=== PATIENT | male | born 1940 | race Caucasian/White ===

== ENCOUNTER 2025-05-11 16:58 | Emergency (ER) | payer OTHER, SELFPAY ==
[2025-05-11 17:06] VITALS: BP 128/57
[2025-05-11 17:35] LABS: Hematocrit 37.9 % (39.0-52.0); Hemoglobin 13.1 g/dL (13.0-18.0); Mean Corp Hgb Conc. 34.6 g/dL (33.0-37.0); Mean Corpuscular Volume 96.4 fL (80.0-94.0); Nucleated Red Blood Cells % 0 % (-); Platelet Count 269 10^3/uL (130-400); Red Cell Dist. Width 13.2 % (11.5-14.5)
[2025-05-11 17:50] LABS: ALT (SGPT) 31 U/L (0-50); AST (SGOT) 35 U/L (17-59); Albumin 4.1 g/dl (3.5-5.0); Alkaline Phosphatase 91 U/L (38-126); Blood Urea Nitrogen 23 mg/dl (9-20); Calcium 9.4 mg/dl (8.4-10.2); Carbon Dioxide 26 mmol/L (22-30); Chloride 103 mmol/L (98-107); Glucose 87 mg/dl (70-99); Potassium 3.5 mmol/L (3.5-5.1); Sodium 137 mmol/L (135-145); Total Protein 6.8 g/dl (6.3-8.2); eGFR 59.63
[2025-05-11 18:37] VITALS: BMI 19.5
[2025-05-11] MEDS: PROTONIX IV 40 MG IV (19:11)
[2025-05-11] MEDS: NSS 1000 IV (19:12)
[2025-05-11 19:16] VITALS: BP 140/77
--- NOTE | 2025-05-11 19:55 | ED.GENMED ---
History of Present Illness
<Pino Torres PA-C - Last Filed: 05/12/25 13:06>
General
Chief Complaint: Dehydration Symptoms
Time Seen by Provider: 05/11/25 18:34
History of Present Illness
History of Present Illness:
84-year-old male with history of recent stroke, hypertension, and hyperlipidemia presents to the emergency department for evaluation of general malaise and poor p.o. intake. According to his daughter, since his stroke he has poor appetite. He had
blood work done yesterday and his primary care physician was concerned he may be dehydrated thus sent him to the ED for fluids. Daughter also notes that his urine has been very cloudy and is concern for UTI as he requires self-catheterization. No
vomiting or diarrhea. He has been constipated for several days.
Review of Systems
<Pino Torres PA-C - Last Filed: 05/12/25 13:06>
Review of Systems
Allergies reviewed?: Yes
All Other Systems: ROS reviewed and negative except as documented in HPI and ROS
Phy Exam
<Pino Trores PA-C - Last Filed: 05/12/25 13:06>
Physical Exam
Physical Exam:
GEN: Well appearing, NAD, WDWN
HEENT: Oral mucosa moist, no scleral icterus
Cardiac: Regular rate
Lung: No respiratory distress, no tachypnea
MSK: No gross deformity or injuries
Skin: Good color, no pallor or jaundice, no rashes
Neuro: AO x3, moves all extremities freely
Psych: Calm, cooperative
Course
<Pino Torres PA-C - Last Filed: 05/12/25 13:06>
Orders/Labs/Results
Orders:
Orders
05/11/25 17:23
Complete Blood Count/With Diff Urgent
Comprehensive Metabolic Panel Urgent
05/11/25 19:06
0.9% Sodium Chloride 1000 ml [Nss] 1,000 ml IV BOLUS
Pantoprazole [Protonix IV] 40 mg IV NOW STA
Abnormal Lab Results
05/11/25
17:23
RBC 3.93 L 10^6/uL
(4.70-6.10)
Hct 37.9 L %
(39.0-52.0)
MCV 96.4 H fL
(80.0-94.0)
MCH 33.3 H pg
(27.0-31.0)
Absolute Monos (auto) 0.8 H 10^3/uL
(0.1-0.6)
Lymphocytes % 18.3 L %
(20.5-51.1)
Monocytes % 10.7 H %
(1.7-9.3)
BUN 23 H mg/dl
(9-20)
05/11/25 17:23
05/11/25 17:23
Vital Signs
Initial and Last Documented VS:
Initial Vital Signs
Temp Pulse Resp BP Pulse Ox
97.1 F 75 16 128/57 96
05/11/25 17:06 05/11/25 17:06 05/11/25 17:06 05/11/25 17:06 05/11/25 17:06
Last Documented Vital Signs
Temp Pulse Resp BP Pulse Ox
97.1 F 78 18 140/77 99
05/11/25 17:06 05/11/25 19:16 05/11/25 21:06 05/11/25 19:16 05/11/25 19:57
Hannahlt;Fawn Santana PA-C - Last Filed: 05/11/25 21:42>
Orders/Labs/Results
Orders:
Orders
05/11/25 17:23
Complete Blood Count/With Diff Urgent
Comprehensive Metabolic Panel Urgent
05/11/25 19:06
0.9% Sodium Chloride 1000 ml [Nss] 1,000 ml IV BOLUS
Pantoprazole [Protonix IV] 40 mg IV NOW STA
Abnormal Lab Results
05/11/25
17:23
RBC 3.93 L 10^6/uL
(4.70-6.10)
Hct 37.9 L %
(39.0-52.0)
MCV 96.4 H fL
(80.0-94.0)
MCH 33.3 H pg
(27.0-31.0)
Absolute Monos (auto) 0.8 H 10^3/uL
(0.1-0.6)
Lymphocytes % 18.3 L %
(20.5-51.1)
Monocytes % 10.7 H %
(1.7-9.3)
BUN 23 H mg/dl
(9-20)
05/11/25 17:23
05/11/25 17:23
Vital Signs
Initial and Last Documented VS:
Initial Vital Signs
Temp Pulse Resp BP Pulse Ox
97.1 F 75 16 128/57 96
05/11/25 17:06 05/11/25 17:06 05/11/25 17:06 05/11/25 17:06 05/11/25 17:06
Last Documented Vital Signs
Temp Pulse Resp BP Pulse Ox
97.1 F 78 18 140/77 99
05/11/25 17:06 05/11/25 19:16 05/11/25 21:06 05/11/25 19:16 05/11/25 19:57
Hannahlt;Fawn Santana PA-C - Last Filed: 05/11/25 21:42>
MDM/Problems Addressed
Differential Diagnosis Includes:
Patient given IV fluids with improvement in his symptoms. Multiple straight cath attempts were made here in the emergency department for urine sample but were met with resistance. Bladder scan for to 60 mL after IV fluids. Discussed with patient
and his family that we could repeat a cath to obtain urine sample for UA, but patient would like to be discharged and follow-up with his primary care provider. He feels confident that he will be able to straight cath himself at home when he is out
of the emergency department.
<Pino Torres PA-C - Last Filed: 05/12/25 13:06>
*Pulse Oximetry
SaO2: 99
Oxygen Mode of Delivery: Room air
<Fawn Santana PA-C - Last Filed: 05/11/25 21:42>
*Pulse Oximetry
Patient hypoxic: no
*Critical Care Note
Total Time (30-74mins, 75-104mins- exclusive of procedures): Not Applicable
ED Attending Note
<Pino Torres PA-C - Last Filed: 05/12/25 13:06>
-
Portions of this chart may have been created with voice recognition software.� Occasional wrong word or��sound alike� substitutions may have occurred due to the inherent limitations of voice recognition software.
Discharge Plan
Departure
Patient Disposition: Home (Routine Discharge)
Date of Disposition: 05/11/25
Time of Disposition: 21:40
Patient with high blood pressure during this ER visit?: No
Discharge Problem:
Dehydration, Poor fluid intake, Acid reflux
Instructions: Dehydration, Adult (DC)
Prescriptions:
New
pantoprazole 40 mg tablet,delayed release (DR/EC)
40 mg PO DAILY Qty: 10 0RF
Referrals:
Rina Hendricks MD [Family Provider]
Activity Restrictions/Additional Instructions:
Take the pantoprazole on an empty stomach
Do not lie flat for at least 1 hour after eating
Smaller, more frequent meals if possible
Interventions
Interventions:
*General Assessment Last Done: 05/11/25 17:06
*Neglect/Abuse Screening Last Done: 05/11/25 17:06
*ED COVID-19 Vaccine History Last Done: 05/11/25 17:06
*ED Influenza Vaccine History Last Done: 05/11/25 18:37
[facility] Fall Risk Assessment Tool Last Done: 05/11/25 18:38
*Risk Screen - Suicide (C-SSRS) Last Done: 05/11/25 17:06
*Nursing Disposition Last Done: 05/11/25 21:58
ED- Cardiac Assessment Last Done: 05/11/25 18:39
ED- Neurological Assessment Last Done: 05/11/25 18:39
ED- Pulmonary Assessment Last Done: 05/11/25 18:39
Discharge Date and Time
Discharge Date/Time: 05/11/25 21:59
Print Language: GREENLANDIC
== END 2025-05-11 21:59 | disposition home or self-care (01) ==
LOC: EMR 16:58
PROVIDERS: EMERGENCY PHYSICIAN Emergency Medicine; FAMILY PHYSICIAN Student in an Organized Health Care Education/Training Program
DX: E86.0 Dehydration (principal); K21.9 Gastro-esophageal reflux disease without esophagitis; R63.8 Other symptoms and signs concerning food and fluid intake; I10 Essential (primary) hypertension; E78.5 Hyperlipidemia, unspecified; Z86.73 Personal history of transient ischemic attack (TIA), and cerebral infarction without residual deficits
CPT/HCPCS: 96374; 96361; 99284; 80053; 85025